=== PATIENT | female | born 1945 | race Caucasian/White ===

== ENCOUNTER 2016-05-02 21:16 | Emergency (ER) | payer OTHER ==
[2016-05-02 21:36] VITALS: BP 145/73
[2016-05-02] MEDS ORDERED: Cephalexin CAP* 500 MG PO ONE (21:49)
[2016-05-02] MEDS ORDERED: Cephalexin CAP* 250 MG PO ONE ×2 (21:50→21:51)
[2016-05-02] MEDS ORDERED: Phenazopyridine TAB* 100 MG PO ONE ×2 (21:50→21:51)
--- NOTE | 2016-05-02 21:55 | UC ---
Complaint Female HPI - HPI Summary HPI Summary: 71 yo female with the onset of dysuria/urgency/frequency and hematuria today no f/c no n/v no back or abd pain - History Of Current Complaint Chief Complaint: UCGU Stated Complaint: FREQUENT URINATION Time Seen by Provider: 05/02/16 21:42 Hx Obtained From: Patient Onset/Duration: Sudden Onset, Lasting Hours Timing: Constant Severity Initially: Mild Severity Currently: Mild Pain Intensity: 3 Pain Scale Used: 0-10 Numeric Character: Burning Aggravating Factor(s): Urination Alleviating Factor(s): Nothing Related Hx: Similar Episode/Dx as: - uti - Allergies/Home Medications Allergies/Adverse Reactions: Allergies Allergy/AdvReac Type Severity Reaction Status Date / Time Doxycycline Allergy Severe GI Upset Verified 05/02/16 21:39 Sulfa Antibiotics Allergy Severe GI Upset Verified 05/02/16 21:39 Home Medications: Home Medications Lansoprazole [Prevacid] 05/02/16 [History] Metoprolol Succinate XL TAB* [Toprol XL TAB*] 05/02/16 [History Confirmed 05/02] Multiple Vitamins W/ Minerals [Vitamins & Minerals] 05/02/16 [History] Warfarin TAB(*) [Coumadin TAB(*)] 05/02/16 [History] PMH/Surg Hx/FS Hx/Imm Hx Endocrine History Of: Denies: Diabetes Cardiovascular History Of: Reports: Atrial Fibrillation GI/ History Of: Denies: Kidney Stones Psychological History Of: Reports: Anxiety - Surgical History Surgical History: Yes Surgery Procedure, Year, and Place: 4 CARDIAC ABLATIONS, OOPHORECTOMY, APPENDECTOMY, CHOLECYSTECTOMY - Family History Known Family History: Positive: Hypertension - Social History Alcohol Use: None Substance Use Type: None Smoking Status (MU): Never Smoked Tobacco Review of Systems Constitutional: Negative Skin: Negative Eyes: Negative ENT: Negative Respiratory: Negative Cardiovascular: Negative Gastrointestinal: Negative Genitourinary: Dysuria, Hematuria, Frequency, Urgency Motor: Negative Neurovascular: Negative Musculoskeletal: Negative Neurological: Negative Psychological: Negative All Other Systems Reviewed And Are Negative: Yes Physical Exam Triage Information Reviewed: Yes Appearance: Well-Appearing, No Pain Distress, Well-Nourished Vital Signs: Initial Vital Signs Temp 97.9 F 05/02/16 21:28 Pulse 70 05/02/16 21:28 Resp 16 05/02/16 21:28 BP 145/73 05/02/16 21:28 Vital Signs Reviewed: Yes Eyes: Positive: Conjunctiva Clear ENT: Positive: Normal ENT inspection Neck: Positive: Supple Respiratory: Positive: Chest non-tender, Lungs clear, Normal breath sounds, No respiratory distress Cardiovascular: Positive: RRR, Pulses Normal, Brisk Capillary Refill. Negative : Tachycardia, Bradycardia Abdominal Exam: Normal Abdomen Description: Positive: Nontender. Negative: CVA Tenderness (R), CVA Tenderness (L) Bowel Sounds: Positive: Present Musculoskeletal: Positive: ROM Intact, No Edema Neurological: Positive: Alert Psychological Exam: Normal Skin Exam: Normal Complaint Female Dx - Differential Dx/Diagnosis Provider Diagnoses: acute cystitis Discharge - Discharge Plan Condition: Stable Disposition: HOME Prescriptions: Cephalexin CAP* [Keflex CAP*] 500 mg PO BID #12 cap Phenazopyridine TAB* [Pyridium TAB*] 100 mg PO TID #4 tab Patient Education Materials: Urinary Tract Infection in Women (ED) Referrals: Celeste Mejia MD [Primary Care Provider] - 3 Days (if not better)
== END 2016-05-02 22:06 | disposition home or self-care (01) ==
LOC: UCEAST 21:16
DX: N30.01 Acute cystitis with hematuria (principal); Z88.1 Allergy status to other antibiotic agents; Z88.2 Allergy status to sulfonamides; I48.91 Unspecified atrial fibrillation; Z79.01 Long term (current) use of anticoagulants; Z90.49 Acquired absence of other specified parts of digestive tract
CPT/HCPCS: 81002; 87077; 87086; 87186; 99213; A9270-GY; G0463

== ENCOUNTER 2017-10-10 20:32 | Emergency (ER) | payer OTHER ==
[2017-10-10 20:49] VITALS: BP 146/70
--- NOTE | 2017-10-10 20:56 | UC ---
Complaint Female HPI - HPI Summary HPI Summary: pain and burning with urination for over 1 week, states she spoke with the nurse in her doctors office who said not to take an antibiotic because of the cystocopy she was having this coming Wednesday patient reports worsening pain in lower abdomen but no nausea vomiting fevers chills or flank pain- - History Of Current Complaint Chief Complaint: UCGU Stated Complaint: PAIN W/ URINATION Time Seen by Provider: 10/10/17 20:46 Hx Obtained From: Patient ?: No Onset/Duration: Gradual Onset, Lasting Days - >7 days, Still Present, Worse Since - this past 3 days Timing: Constant Severity Initially: Mild Severity Currently: Moderate Character: Burning Aggravating Factor(s): Urination - Allergies/Home Medications Allergies/Adverse Reactions: Allergies Allergy/AdvReac Type Severity Reaction Status Date / Time MS Doxycycline [Doxycycline] Allergy Severe GI Upset Verified 05/02/16 21:39 MS Sulfa Antibiotics Allergy Severe GI Upset Verified 05/02/16 21:39 [Sulfa Antibiotics] PMH/Surg Hx/FS Hx/Imm Hx Previously Healthy: No Cardiovascular History: Atrial Fibrillation GI/ History: Gastroesophageal Reflux - Surgical History Surgical History: Yes Surgery Procedure, Year, and Place: 4 CARDIAC ABLATIONS, OOPHORECTOMY, APPENDECTOMY, CHOLECYSTECTOMY - Family History Known Family History: Positive: Hypertension - Social History Occupation: Retired Lives: With Family Alcohol Use: None Substance Use Type: None Smoking Status (MU): Never Smoked Tobacco Review of Systems Constitutional: Negative Skin: Negative Eyes: Negative ENT: Negative Respiratory: Negative Cardiovascular: Negative Gastrointestinal: Negative Genitourinary: Dysuria, Frequency, Urgency Motor: Negative Neurovascular: Negative Musculoskeletal: Negative Neurological: Negative Psychological: Negative Is Patient Immunocompromised?: No All Other Systems Reviewed And Are Negative: Yes Physical Exam Triage Information Reviewed: Yes Appearance: Well-Appearing, Well-Nourished, Pain Distress Vital Signs Reviewed: Yes Eye Exam: Normal Eyes: Positive: Conjunctiva Clear ENT Exam: Normal ENT: Positive: Normal ENT inspection, Hearing grossly normal, Pharynx normal, Nasal congestion. Negative: TMs normal, Trismus, Muffled voice, Hoarse voice, Sinus tenderness, Uvula midline Dental Exam: Normal Neck exam: Normal Neck: Positive: Supple, Nontender Respiratory Exam: Normal Respiratory: Positive: Chest non-tender, No respiratory distress, No accessory muscle use Cardiovascular Exam: Normal Cardiovascular: Positive: RRR, Pulses Normal, Brisk Capillary Refill Abdominal Exam: Normal Abdomen Description: Positive: No Organomegaly, Soft. Negative: CVA Tenderness (R), CVA Tenderness (L), McBurney's Point Tenderness, Peritoneal Signs, Pulsatile Mass, Splenomegaly Bowel Sounds: Positive: Present Musculoskeletal Exam: Normal Musculoskeletal: Positive: Strength Intact, ROM Intact, No Edema Neurological Exam: Normal Neurological: Positive: Alert, Muscle Tone Normal Psychological Exam: Normal Skin Exam: Normal Complaint Female Dx - Course Course Of Treatment: culture urine keflex, lidocaine externally for pain with urination pyridium, follow with pcp in morning to monitor INR, and with urologist regarding cystoscopic procedure in 3 days - Differential Dx/Diagnosis Provider Diagnoses: recurrent URI Discharge - Sign-Out/Discharge Documenting (check all that apply): Patient Departure - Discharge Plan Condition: Stable Disposition: HOME Prescriptions: Cephalexin CAP* [Keflex CAP*] 500 mg PO BID #20 cap Phenazopyridine 200 mg (NF) [Pyridium 200 MG tab *] 200 mg PO TID PRN #9 tab PRN Reason: urinary pain/burning Patient Education Materials: Phenazopyridine (By mouth), Urinary Tract Infection in Women (ED) Referrals: Celeste Mejia MD [Primary Care Provider] - 1 Day ( to monitor INR) Additional Instructions: call urologist in the morning and discuss cystoscope planned for Wednesday - Billing Disposition and Condition Condition: STABLE Disposition: Home
[2017-10-10] MEDS ORDERED: Cephalexin CAP* 500 MG PO ONE (21:02)
[2017-10-10] MEDS ORDERED: Lidocaine 2% VISCOUS* 15 ML UDC ONE (21:03)
[2017-10-10] MEDS ORDERED: HYDROcodone/ACETAMIN 5-325 MG* 1 TAB PO ONE (21:34)
--- NOTE | 2017-10-13 11:28 | ED ---
Progress - Progress Note Progress Note: URINE CX FINAL BACK. PATIENT ON KEFLEX ESBL E. COLI RESISTANT TO CAFAZOLIN NURSING TO CALL PATIENT AND STOP KEFLEX AND START AUGMENTIN Discharge - Sign-Out/Discharge Documenting (check all that apply): Patient Departure - Discharge Plan Condition: Stable Disposition: HOME Prescriptions: Amoxicillin/Clavulanate TAB* [Augmentin TAB 875*] 875 mg PO BID #20 tab Cephalexin CAP* [Keflex CAP*] 500 mg PO BID #20 cap Phenazopyridine 200 mg (NF) [Pyridium 200 MG tab *] 200 mg PO TID PRN #9 tab PRN Reason: urinary pain/burning Patient Education Materials: Phenazopyridine (By mouth), Urinary Tract Infection in Women (ED) Referrals: Celeste Mejia MD [Primary Care Provider] - 1 Day ( to monitor INR) Additional Instructions: call urologist in the morning and discuss cystoscope planned for Wednesday - Bill Disposition and Condition Condition: STABLE Disposition: Home
== END 2017-10-10 21:49 | disposition home or self-care (01) ==
LOC: UCEAST 20:32
DX: N39.0 Urinary tract infection, site not specified (principal); I48.91 Unspecified atrial fibrillation; K21.9 Gastro-esophageal reflux disease without esophagitis; Z88.1 Allergy status to other antibiotic agents; Z88.2 Allergy status to sulfonamides; Z82.49 Family history of ischemic heart disease and other diseases of the circulatory system
CPT/HCPCS: 81003; 87077; 87086; 87186; 99213; A9270-GY; G0463

== ENCOUNTER 2018-03-22 08:46 | Emergency (ER) | payer OTHER ==
[2018-03-22 09:08] VITALS: BP 122/76
--- NOTE | 2018-03-22 09:15 | UC ---
Complaint Female HPI - HPI Summary HPI Summary: Patient started having urinary symptoms yesterday, burning with urination. has had 6 utis this year - History Of Current Complaint Chief Complaint: UCGU Stated Complaint: URINARY ISSUE Time Seen by Provider: 03/22/18 09:04 Hx Obtained From: Patient ?: No Onset/Duration: Sudden Onset, Lasting Days - 1` Timing: Constant Severity Initially: Mild Severity Currently: Mild Pain Intensity: 0 Character: Burning Aggravating Factor(s): Urination - Allergies/Home Medications Allergies/Adverse Reactions: Allergies Allergy/AdvReac Type Severity Reaction Status Date / Time doxycycline Allergy GI Upset Verified 03/22/18 09:07 Sulfa (Sulfonamide Allergy GI Upset Verified 03/22/18 09:07 Antibiotics) PMH/Surg Hx/FS Hx/Imm Hx Previously Healthy: Yes GI/ History: Other - frequent UTI - Surgical History Surgical History: Yes Surgery Procedure, Year, and Place: 4 CARDIAC ABLATIONS, OOPHORECTOMY, APPENDECTOMY, CHOLECYSTECTOMY, CYSTOSCOPY - Family History Known Family History: Positive: Hypertension - Social History Alcohol Use: None Substance Use Type: None Smoking Status (MU): Never Smoked Tobacco Review of Systems All Other Systems Reviewed And Are Negative: Yes Constitutional: Positive: Negative Skin: Positive: Negative Eyes: Positive: Negative ENT: Positive: Negative Respiratory: Positive: Negative Cardiovascular: Positive: Negative Gastrointestinal: Positive: Negative Genitourinary: Positive: Dysuria, Frequency, Urgency Motor: Positive: Negative Neurovascular: Positive: Negative Musculoskeletal: Positive: Negative Neurological: Positive: Negative Psychological: Positive: Negative Is Patient Immunocompromised?: No Physical Exam Vital Signs: Initial Vital Signs Temp 97.8 F 03/22/18 09:01 Pulse 70 03/22/18 09:01 Resp 15 03/22/18 09:01 BP 122/76 03/22/18 09:01 Pulse Ox 98 03/22/18 09:01 Complaint Female Dx - Course Course Of Treatment: hx obtained, exam performed ,meds reviewed, UA obtained, - Differential Dx/Diagnosis Differential Diagnosis/HQI/PQRI: Urinary Tract Infection Provider Diagnosis: UTI (urinary tract infection), bacterial Discharge - Sign-Out/Discharge Documenting (check all that apply): Patient Departure All imaging exams completed and their final reports reviewed: No Studies - Discharge Plan Condition: Stable Disposition: HOME Prescriptions: Nitrofurantoin Macrocrystals* [Macrodantin 100 mg*] 100 mg PO BID #12 cap Patient Education Materials: Urinary Tract Infection in Women (DC) Referrals: Celeste Mejia MD [Primary Care Provider] - Additional Instructions: 1. Take the full course of medication. 2. Increase fluid intake 3. I recommend follow up with a urologist. - Billing Disposition and Condition Condition: STABLE Disposition: Home
[2018-03-22] MEDS ORDERED: Nitrofurantoin Macrocrystals* 50 MG CAP PO ONE (09:19)
== END 2018-03-22 09:35 | disposition home or self-care (01) ==
LOC: UCEAST 08:46
DX: N39.0 Urinary tract infection, site not specified (principal); B96.89 Other specified bacterial agents as the cause of diseases classified elsewhere; Z88.1 Allergy status to other antibiotic agents; Z88.2 Allergy status to sulfonamides
CPT/HCPCS: 81003; 87086; 99212; A9270-GY; G0463